=== PATIENT | female | born 1990 | race Two or more races ===

== ENCOUNTER 2018-04-24 05:34 | Inpatient (IN) | payer MEDICAID ==
[~2018-04-24] VITALS: Ht 157.5 cm; Wt 66.3 kg
[2018-04-24] VITALS (7 sets, daily range): BP systolic 102–124; BP diastolic 56–75
[2018-04-24] MEDS ORDERED: Mylanta II UD 30ml ORAL ONE (05:45)
--- NOTE | 2018-04-24 05:47 | Emergency Room Report ---
History of Present Illness General Source: Patient, EMS Present Illness HPI Is a 27-year-old female with history of depression. She's not on any medication. She was brought in by EMS with chief complaint of feeling depressed and suicidal. She took about 10 tablets of ibuprofen about an hour prior to arrival. She said she try to hurt herself. She's been depressed for over a year. Stop going to psychiatrist or taking medicine for about a year and a half now. She has 2 kids are living with their father. Patient has a history of methamphetamine abuse. Last use was 2 weeks ago. Also alcohol tonight. No other complaint. Allergies: Coded Allergies: No Known Allergies (Unverified , 04/24/18) Patient History Past Medical History: see triage record, old chart reviewed, depression Past Surgical History: none Family History: none Social History: ETOH, drug use, single, lives with parent Now: No Immunizations: other Reviewed Nursing Documentation: PMH: Agreed; PSxH: Agreed Review of Systems ENT: Denies: sore throat Cardiovascular: Denies: chest pain, palpitations Gastrointestinal/Abdominal: Denies: nausea, vomiting, diarrhea Musculoskeletal: Denies: back problems Skin: Denies: rash Psychiatric: Reports: prior history, depression Neurological: Denies: RICHTER, seizures All Other Systems: negative except mentioned in HPI Physical Exam vitals unremarkable Sp02 EP Interpretation: reviewed, normal General Appearance: alert/responsive, no apparent distress, non-toxic Head: normocephalic, atraumatic Eyes: PERRL, EOMI ENT: oropharynx normal Neck: supple/symm/no masses Respiratory: effort normal, no rhonchi, no wheezing Cardiovascular: no murmur, gallop, rub Gastrointestinal: non-tender, no mass, non-distended, no rebound/guarding, normal bowel sounds Musculoskeletal: gait & station normal Neurologic: oriented x3, sensory intact, motor strength/tone normal Psychiatric: other - Depressed with suicidal thoughts Suicide Risk Assessment: Suicidal Ideation: Yes Had intent to initiate attempt: Yes Pt's plan for suicide attempt: Yes Has means to complete attempt: Yes Skin: no rash, normal palpation Medical Decision Making Diagnostic Impression: Primary Impression: Suicidal ideation Additional Impressions: Depression Qualified Codes: F32.2 - Major depressive disorder, single episode, severe without psychotic features Overdose Qualified Codes: T50.902A - Poisoning by unspecified drugs, medicaments and biological substances, intentional self-harm, initial encounter Alcohol intoxication Qualified Codes: F10.920 - Alcohol use, unspecified with intoxication, uncomplicated ER Course Patient presents with suicidal attempt. Amount of ibuprofen is nontoxic. No evidence of any GI bleeding or decompensation. Labs sent. Police placed her on a 5150. If labs are normal, patient will be medically cleared. I will sign this patient out to Dr. Felix for final disposition. Lab Results Impression labs with elevated tylenol level Status: improved Disposition: ADMITTED INPATIENT Condition: Serious Yared Goff MD Apr 24, 2018 05:47
[2018-04-24] MEDS ORDERED: NKM (05:48)
[2018-04-24 06:58] LABS: APPEARANCE,URINE SLIGHTLY CLOUDY; BASOPHILS % (AUTO) 0.9 % (0.0-2.0); BILIRUBIN, URINE NEGATIVE (NEGATIVE); COLOR,URINE PALE YELLOW; GLUCOSE, URINE (UA) NEGATIVE (NEGATIVE); HEMATOCRIT 40.3 % (37.0-47.0); HEMOGLOBIN 13.8 G/DL (12.0-16.0); KETONES,URINE NEGATIVE (NEGATIVE); LEUKOCYTE ESTERASE ,URINE NEGATIVE (NEGATIVE); LYMPHOCYTES % (AUTO) 25.5 % (20.0-45.0); MEAN CORPUSCULAR VOLUME 83 FL (80-99); MONOCYTES % (AUTO) 4.9 % (1.0-10.0); NEUTROPHILS % (AUTO) 68.6 % (45.0-75.0); NITRITE,URINE NEGATIVE (NEGATIVE); PH,URINE 6 (4.5-8.0); PLATELET COUNT 330 K/UL (150-450); PROTEIN,URINE 1+ (NEGATIVE); RED BLOOD COUNT 4.86 M/UL (4.20-5.40); RED CELL DISTRIBUTION WIDTH 11.7 % (11.6-14.8); UROBILINOGEN,URINE NORMAL MG/DL (0.0-1.0); WHITE BLOOD COUNT 7.2 K/UL (4.8-10.8)
[2018-04-24 07:03] LABS: ANION GAP 12 mmol/L (5-15); BLOOD UREA NITROGEN 6 mg/dL (7-18); CARBON DIOXIDE 23 MMOL/L (21-32); CHLORIDE 106 MMOL/L (98-107); CREATININE 0.5 MG/DL (0.55-1.30); POTASSIUM 3.5 MMOL/L (3.5-5.1); SODIUM 141 MMOL/L (136-145)
[2018-04-24 07:08] LABS: ALANINE AMINOTRANSFERASE 25 U/L (12-78); ALBUMIN/GLOBULIN RATIO 0.7 (1.0-2.7); ALKALINE PHOSPHATASE 93 U/L (46-116); ASPARTATE AMINO TRANSFERASE 15 U/L (15-37); BILIRUBIN,TOTAL 0.3 MG/DL (0.2-1.0)
[2018-04-24] MEDS ORDERED: ACETADOTE IVPB ONE ×3 (07:30)
[2018-04-24] MEDS ORDERED: D5W IVPB ONE ×3 (07:30)
--- NOTE | 2018-04-24 15:41 | GI Initial Consult Note ---
History of Present Illness General Date patient seen: Apr 24, 2018 Time patient seen: 15:40 Reason for Hospitalization: Suicidal Referring physician: DENISHA Reason for Consultation: TYLENOL OD Present Illness HPI Is a 27-year-old female with history of depression. She's not on any medication. She was brought in by EMS with chief complaint of feeling depressed and suicidal. She took about 10 tablets of ibuprofen about an hour prior to arrival. She said she try to hurt herself. She's been depressed for over a year. Stop going to psychiatrist or taking medicine for about a year and a half now. She has 2 kids are living with their father. Patient has a history of methamphetamine abuse. Last use was 2 weeks ago. Also alcohol tonight. No other complaint. GI consulted for Tylenol OD. Pt was seen in ED, denied any abdominal pain and over all felt better. No noted active N/V or diarrhea. Her history is vague, stated that she was drinking, did alot of medication and could not remember anything else. At this time did not answer any further questions. Labs reviewed; acetaminophen elevation. No anemia. No leukocytosis. No history of endoscopy / colonoscopy. Home Meds Reported Medications No Known Medications* (NKM - No Known Medications*) ., 0 ., 0 Refills 04/24/18 Med list reviewed/reconciled: Yes Allergies: Coded Allergies: No Known Allergies (Unverified , 04/24/18) Patient History History Provided By: Patient, Medical Record PMH Narrative Past Medical History: see triage record, old chart reviewed, depression Past Surgical History: none Family History: none Social History: ETOH, drug use, single, lives with parent Now: No Immunizations: other Reviewed Nursing Documentation: PMH: Agreed; PSxH: Agreed Social History: Reports: smoking, alcohol use, drug use Review of Systems All Other Systems: negative except mentioned in HPI Physical Exam Vital Signs Date Time Temp Pulse Resp B/P (MAP) Pulse Ox O2 Delivery O2 Flow Rate FiO2 04/24/18 05:40 98.1 80 18 124/58 100 Room Air Sp02 EP Interpretation: reviewed, normal Labs Laboratory Tests Test 04/24/18 06:30 White Blood Count 7.2 K/UL (4.8-10.8) Red Blood Count 4.86 M/UL (4.20-5.40) Hemoglobin 13.8 G/DL (12.0-16.0) Hematocrit 40.3 % (37.0-47.0) Mean Corpuscular Volume 83 FL (80-99) Mean Corpuscular Hemoglobin 28.4 PG (27.0-31.0) Mean Corpuscular Hemoglobin Concent 34.2 G/DL (32.0-36.0) Red Cell Distribution Width 11.7 % (11.6-14.8) Platelet Count 330 K/UL (150-450) Mean Platelet Volume 5.1 FL (6.5-10.1) L Neutrophils (%) (Auto) 68.6 % (45.0-75.0) Lymphocytes (%) (Auto) 25.5 % (20.0-45.0) Monocytes (%) (Auto) 4.9 % (1.0-10.0) Eosinophils (%) (Auto) 0.0 % (0.0-3.0) Basophils (%) (Auto) 0.9 % (0.0-2.0) Urine Color Pale yellow Urine Appearance Slightly cloudy Urine pH 6 (4.5-8.0) Urine Specific [place] 1.010 (1.005-1.035) Urine Protein 1+ (NEGATIVE) H Urine Glucose (UA) Negative (NEGATIVE) Urine Ketones Negative (NEGATIVE) Urine Blood 2+ (NEGATIVE) H Urine Nitrite Negative (NEGATIVE) Urine Bilirubin Negative (NEGATIVE) Urine Urobilinogen Normal MG/DL (0.0-1.0) Urine Leukocyte Esterase Negative (NEGATIVE) Urine RBC 2-4 /HPF (0 - 2) H Urine WBC 2-4 /HPF (0 - 2) Urine Squamous Epithelial Cells Moderate /LPF (NONE/OCC) H Urine Bacteria Few /HPF (NONE) Urine HCG, Qualitative Negative (NEGATIVE) Sodium Level 141 MMOL/L (136-145) Potassium Level 3.5 MMOL/L (3.5-5.1) Chloride Level 106 MMOL/L (98-107) Carbon Dioxide Level 23 MMOL/L (21-32) Anion Gap 12 mmol/L (5-15) Blood Urea Nitrogen 6 mg/dL (7-18) L Creatinine 0.5 MG/DL (0.55-1.30) L Estimat Glomerular Filtration Rate > 60 mL/min (>60) Glucose Level 119 MG/DL (74-106) H Calcium Level 9.0 MG/DL (8.5-10.1) Total Bilirubin 0.3 MG/DL (0.2-1.0) Aspartate Amino Transf (AST/SGOT) 15 U/L (15-37) Alanine Aminotransferase (ALT/SGPT) 25 U/L (12-78) Alkaline Phosphatase 93 U/L (46-116) Total Protein 9.4 G/DL (6.4-8.2) H Albumin 4.0 G/DL (3.4-5.0) Globulin 5.4 g/dL Albumin/Globulin Ratio 0.7 (1.0-2.7) L Salicylates Level 0.9 ug/mL (2.8-20) L Urine Opiates Screen Negative (NEGATIVE) Acetaminophen Level 203 MCG/ML (10-30) *H Urine Barbiturates Screen Negative (NEGATIVE) Phencyclidine (PCP) Screen Negative (NEGATIVE) Urine Amphetamines Screen Negative (NEGATIVE) Urine Benzodiazepines Screen Negative (NEGATIVE) Urine Cocaine Screen Negative (NEGATIVE) Urine Marijuana (THC) Screen Negative (NEGATIVE) Serum Alcohol 146 mg/dL General Appearance: well appearing, no apparent distress, alert, obese Head: normocephalic EENT: PERRL/EOMI, normal ENT inspection Neck: supple Respiratory: normal breath sounds, no respiratory distress Cardiovascular: normal rate Gastrointestinal: normal inspection, non tender, soft, normal bowel sounds, non -distended Rectal: deferred Genitourinary: no CVA tenderness Musculoskeletal: normal inspection, back normal Neurologic: normal inspection, alert, oriented x3, responsive Psychiatric: normal inspection, judgement/insight normal, memory normal Skin: normal inspection, normal color, no rash, warm/dry, palpation normal, well hydrated Lymphatic: normal inspection, no adenopathy Current Medications Current Medications Medications (Trade) Dose Ordered Sig/Nadiya Route PRN Reason Start Time Stop Time Status Last Admin Dose Admin Acetylcysteine 6800 mg/Dextrose 1,034 ml @ 62.5 mls/hr ONCE ONCE IVPB 04/24/18 07:30 04/25/18 00:02 04/24/18 13:34 GI: Plan Problems: (1) Tylenol overdose (2) Overdose (3) Suicidal ideation Plan Patient currently receiving 3rd dose of Mucomyst. symptomatic treatment okay to advance diet Zofran prn fu psychiatric recommendations fu labs, Tylenol level tomorrow am Discussed with Dr. Jarquin. Thank you for this patient referral, we will follow. The patient was seen and examined at bedside and all new and available data was reviewed in the patients chart. I agree with the above findings, impression and plan. (Patient seen earlier today. Signature stamp does not reflect patient encounter time.). - MD Shell Caldera AnhMillicent [employer] Apr 24, 2018 15:41
--- NOTE | 2018-04-24 18:30 | History and Physical Report ---
DATE OF ADMISSION: 04/24/2018 CHIEF COMPLAINT: The patient comes in with Tylenol overdose. HISTORY OF PRESENT ILLNESS: The patient states that she is not sure exactly how many she took, but she states it was more than half the bottle of Tylenol that she took. She is going to telemetry for Tylenol overdose, on 5150 hold and was given first dose in the ER for the antidote and initial laboratory draws were good, and alcohol level was also elevated. The patient denies nausea, vomiting, or diarrhea. Denies headache. Denies shortness of breath. Denies fever or chills. No chest pain. No shortness of breath. Denies cough. PAST MEDICAL HISTORY: None. PAST SURGICAL HISTORY: None. SOCIAL HISTORY: She has history of drug abuse. History of alcohol and drug abuse as well as history of smoking. MEDICATIONS: None. FAMILY HISTORY: Noncontributory. ALLERGIES: No known allergies. FAMILY HISTORY: Noncontributory. REVIEW OF SYSTEMS: HEENT: Denies headaches. RESPIRATORY: Denies shortness of breath. Denies cough. CARDIOVASCULAR: Denies chest pain. GASTROINTESTINAL: Denies nausea, vomiting, or diarrhea. EXTREMITIES: Denies pain. CENTRAL NERVOUS SYSTEM: No change in vision or speech pattern. PHYSICAL EXAMINATION: VITAL SIGNS: Temperature 97.2, pulse 78, and blood pressure 130/70. HEENT: PERRLA. NECK: Supple. No lymphadenopathy. CHEST: Clear to auscultation CARDIOVASCULAR: Regular rate and rhythm. LUNGS: GASTROINTESTINAL: Soft, nontender, and nondistended. No organomegaly. EXTREMITIES: No edema. Moves all four extremities. NEUROLOGIC: Sensory intact to light touch. Reflexes equal on both sides. The patient opens eyes, however, she is sedated and altered. LABORATORY DATA: She has normal liver function tests essentially. Antidote was given at the ER. ASSESSMENT AND PLAN: The patient is going for suicide attempt overdose with a sitter. Dr. Booker has already been consulted. Dr. Jarquin, Dr. Valentin, Dr. Booker are consulted for the case. Luca Santizo M.D. DR: Tierra JOB#: [id number] CC:
[2018-04-25] VITALS: BP 112/68
[2018-04-25 04:00] VITALS: BP 104/70
[2018-04-25 08:00] VITALS: BP 100/61
[2018-04-25 08:28] LABS: BASOPHILS % (AUTO) 1.4 % (0.0-2.0); EOSINOPHILS % (AUTO) 0.6 % (0.0-3.0); HEMATOCRIT 37.6 % (37.0-47.0); HEMOGLOBIN 12.6 G/DL (12.0-16.0); LYMPHOCYTES % (AUTO) 49.6 % (20.0-45.0); MEAN CORPUSCULAR VOLUME 84 FL (80-99); MONOCYTES % (AUTO) 4.8 % (1.0-10.0); NEUTROPHILS % (AUTO) 43.6 % (45.0-75.0); PLATELET COUNT 266 K/UL (150-450); RED BLOOD COUNT 4.48 M/UL (4.20-5.40); RED CELL DISTRIBUTION WIDTH 11.6 % (11.6-14.8); WHITE BLOOD COUNT 5.8 K/UL (4.8-10.8)
[2018-04-25 08:47] LABS: ANION GAP 7 mmol/L (5-15); BLOOD UREA NITROGEN 5 mg/dL (7-18); CARBON DIOXIDE 26 MMOL/L (21-32); CHLORIDE 103 MMOL/L (98-107); CREATININE 0.6 MG/DL (0.55-1.30); POTASSIUM 3.4 MMOL/L (3.5-5.1); SODIUM 136 MMOL/L (136-145)
--- NOTE | 2018-04-25 10:51 | General Progress Note ---
Assessment/Plan Problem List: (1) Tylenol overdose ICD Codes: T39.1X1A - Poisoning by 4-Aminophenol derivatives, accidental ( unintentional), initial encounter SNOMED: 704890678 (2) Depression ICD Codes: F32.9 - Major depressive disorder, single episode, unspecified SNOMED: 16793256 Qualifiers: Qualified Codes: F32.2 - Major depressive disorder, single episode, severe without psychotic features (3) Suicidal ideation ICD Codes: R45.851 - Suicidal ideations SNOMED: 9867880 Assessment/Plan normal LFTS fu psych on diet Subjective ROS Limited/Unobtainable: Yes Allergies: Coded Allergies: No Known Allergies (Unverified , 04/24/18) Objective Last 24 Hour Vital Signs Date Time Temp Pulse Resp B/P (MAP) Pulse Ox O2 Delivery O2 Flow Rate FiO2 04/25/18 09:00 Room Air 04/25/18 08:00 97.9 89 18 100/61 (74) 98 04/25/18 08:00 79 04/25/18 04:00 98.4 69 20 104/70 (81) 100 04/25/18 04:00 70 04/25/18 00:00 98.0 82 18 112/68 (83) 97 04/25/18 00:00 71 04/24/18 21:00 Room Air 04/24/18 20:00 98.4 85 19 108/56 (73) 98 04/24/18 20:00 67 04/24/18 16:20 97.5 87 19 109/75 (86) 98 04/24/18 16:13 04/24/18 16:00 76 04/24/18 15:12 98.2 99 19 107/74 (85) 100 04/24/18 14:36 Room Air 04/24/18 14:00 98.1 95 20 111/75 99 Room Air 04/24/18 12:26 95 20 111/75 99 Room Air Intake and Output 04/24/18 04/25/18 19:00 07:00 Intake Total 592 ml Output Total 100 ml Balance -100 ml 592 ml Intake IV Total 592 ml Output Emesis 100 ml # Voids 1 Laboratory Tests 04/25/18 07:45: White Blood Count 5.8, Red Blood Count 4.48, Hemoglobin 12.6, Hematocrit 37.6, Mean Corpuscular Volume 84, Mean Corpuscular Hemoglobin 28.2, Mean Corpuscular Hemoglobin Concent 33.6, Red Cell Distribution Width 11.6, Platelet Count 266, Mean Platelet Volume 5.1L, Neutrophils (%) (Auto) 43.6L, Lymphocytes (%) (Auto) 49.6H, Monocytes (%) (Auto) 4.8, Eosinophils (%) (Auto) 0.6, Basophils (%) (Auto ) 1.4, Sodium Level 136, Potassium Level 3.4L, Chloride Level 103, Carbon Dioxide Level 26, Anion Gap 7, Blood Urea Nitrogen 5L, Creatinine 0.6, Estimat Glomerular Filtration Rate > 60, Glucose Level 120H, Calcium Level 9.0, Acetaminophen Level < 2L Height (Feet): 5 Height (Inches): 2.00 Weight (Pounds): 146 General Appearance: alert EENT: normal ENT inspection Neck: supple Cardiovascular: normal rate Respiratory/Chest: lungs clear Abdomen: normal bowel sounds, non tender, soft Extremities: non-tender Alton Jarquin MD Apr 25, 2018 10:51
--- NOTE | 2018-04-25 11:28 | General Progress Note ---
Assessment/Plan Problem List: (1) Tylenol overdose ICD Codes: T39.1X1A - Poisoning by 4-Aminophenol derivatives, accidental ( unintentional), initial encounter SNOMED: 529471779 (2) Overdose ICD Codes: T50.901A - Poisoning by unspecified drugs, medicaments and biological substances, accidental (unintentional), initial encounter SNOMED: 95975596 Qualifiers: Qualified Codes: T50.902A - Poisoning by unspecified drugs, medicaments and biological substances, intentional self-harm, initial encounter (3) Depression ICD Codes: F32.9 - Major depressive disorder, single episode, unspecified SNOMED: 76752011 Qualifiers: Qualified Codes: F32.2 - Major depressive disorder, single episode, severe without psychotic features (4) Suicidal ideation ICD Codes: R45.851 - Suicidal ideations SNOMED: 2636020 Status: progressing Assessment/Plan afebrile tylenol o/d treatment per dr arielle urrutia Subjective ROS Limited/Unobtainable: Yes Allergies: Coded Allergies: No Known Allergies (Unverified , 04/24/18) Objective Last 24 Hour Vital Signs Date Time Temp Pulse Resp B/P (MAP) Pulse Ox O2 Delivery O2 Flow Rate FiO2 04/25/18 09:00 Room Air 04/25/18 08:00 97.9 89 18 100/61 (74) 98 04/25/18 08:00 79 04/25/18 04:00 98.4 69 20 104/70 (81) 100 04/25/18 04:00 70 04/25/18 00:00 98.0 82 18 112/68 (83) 97 04/25/18 00:00 71 04/24/18 21:00 Room Air 04/24/18 20:00 98.4 85 19 108/56 (73) 98 04/24/18 20:00 67 04/24/18 16:20 97.5 87 19 109/75 (86) 98 04/24/18 16:13 04/24/18 16:00 76 04/24/18 15:12 98.2 99 19 107/74 (85) 100 04/24/18 14:36 Room Air 04/24/18 14:00 98.1 95 20 111/75 99 Room Air 04/24/18 12:26 95 20 111/75 99 Room Air Intake and Output 04/24/18 04/25/18 19:00 07:00 Intake Total 592 ml Output Total 100 ml Balance -100 ml 592 ml Intake IV Total 592 ml Output Emesis 100 ml # Voids 1 Laboratory Tests 04/25/18 07:45: White Blood Count 5.8, Red Blood Count 4.48, Hemoglobin 12.6, Hematocrit 37.6, Mean Corpuscular Volume 84, Mean Corpuscular Hemoglobin 28.2, Mean Corpuscular Hemoglobin Concent 33.6, Red Cell Distribution Width 11.6, Platelet Count 266, Mean Platelet Volume 5.1L, Neutrophils (%) (Auto) 43.6L, Lymphocytes (%) (Auto) 49.6H, Monocytes (%) (Auto) 4.8, Eosinophils (%) (Auto) 0.6, Basophils (%) (Auto ) 1.4, Sodium Level 136, Potassium Level 3.4L, Chloride Level 103, Carbon Dioxide Level 26, Anion Gap 7, Blood Urea Nitrogen 5L, Creatinine 0.6, Estimat Glomerular Filtration Rate > 60, Glucose Level 120H, Calcium Level 9.0, Acetaminophen Level < 2L 04/25/18 10:35: Prothrombin Time [Pending], Prothromb Time International Ratio [Pending], Aspartate Amino Transf (AST/SGOT) [Pending], Alanine Aminotransferase (ALT/SGPT ) [Pending] Height (Feet): 5 Height (Inches): 2.00 Weight (Pounds): 146 Neck: supple Cardiovascular: normal rate Respiratory/Chest: lungs clear Abdomen: soft Luca Santizo MD Apr 25, 2018 11:27
[2018-04-25 11:47] LABS: ALANINE AMINOTRANSFERASE 19 U/L (12-78); ASPARTATE AMINO TRANSFERASE 13 U/L (15-37)
[2018-04-25 12:00] VITALS: BP 104/61
[2018-04-25] MEDS ORDERED: ACETADOTE IV ONE (12:00)
[2018-04-25] MEDS ORDERED: D5W IV ONE (12:00)
[2018-04-25 16:00] VITALS: BP 102/65
--- NOTE | 2018-04-25 16:35 | Cardiology Report ---
APPROVED REPORT EKG Measurement Heart [id number] NE 142P74 [id number] Normal sinus rhythm Rightward axis Borderline ECG
--- NOTE | 2018-04-25 17:54 | Consultation ---
Consult Note Consult Note s a 27-year-old female with history of depression. She's not on any medication. She was brought in by EMS with chief complaint of feeling depressed and suicidal. She took about 10 tablets of ibuprofen about an hour prior to arrival. She said she try to hurt herself. She's been depressed for over a year. Stop going to psychiatrist or taking medicine for about a year and a half now. She has 2 kids are living with their father. Patient has a history of methamphetamine abuse. Last use was 2 weeks ago. Also alcohol tonight. No other complaint. No Known Allergies (Unverified , 04/24/18) Social History: ETOH, drug use, single, lives with parent Assessment/Plan Suicidal ideation Depression Overdose- tylenol level now down Alcohol intoxication Hydrate- K supplement Med surg regular diett per psych Toro Valentin MD Apr 25, 2018 17:54
[2018-04-25 20:00] VITALS: BP 100/59
--- NOTE | 2018-04-25 22:45 | Consultation ---
History of Present Illness General Date patient seen: Apr 25, 2018 Chief Complaint: Suicidal Referring physician: DENISHA Reason for Consultation: TYLENOL OD Present Illness HPI 27-year-old female with history of depression and meth use. the pt has had hx of cutting. She's not on any medication. She was brought in by EMS with chief complaint of feeling depressed and suicidal after her boyfriend broke up with her . She took about 10 tablets of ibuprofen about an hour prior to arrival. the pt is currently but and per the pt the has the full custody of both kids. the pt has been using meth excessively and her teeth are eroded. she minimizes the meth use and stated she has only used couple of times. the pt endorses depressed mood, hopelessness and low energy but the pt denies suicidal thoughts. the pt does not endorse psychotic/manic sxs. Allergies: Coded Allergies: No Known Allergies (Unverified , 04/24/18) Medication History Scheduled No Known Medications* (NKM - No Known Medications*), 0 ., (Reported) Patient History Limited by: medical condition History Provided By: Patient, Medical Record, PMD Healthcare decision maker Resuscitation status Full Code Advanced Directive on File Past Medical/Surgical History Past Medical/Surgical History: (1) Tylenol overdose (2) Depression (3) Suicidal ideation (4) Overdose Review of Systems Psychiatric: Reports: anxiety, depressed feelings, emotional problems Physical Exam General Appearance: no apparent distress, alert, overweight Neurologic: oriented x 3, responsive, depressed affect Last 24 Hour Vital Signs Date Time Temp Pulse Resp B/P (MAP) Pulse Ox O2 Delivery O2 Flow Rate FiO2 04/25/18 20:00 98.1 83 18 100/59 (73) 99 04/25/18 16:00 73 04/25/18 16:00 98.4 84 20 102/65 (77) 99 04/25/18 12:00 98.1 81 20 104/61 (75) 99 04/25/18 12:00 89 04/25/18 09:00 Room Air 04/25/18 08:00 97.9 89 18 100/61 (74) 98 04/25/18 08:00 79 04/25/18 04:00 98.4 69 20 104/70 (81) 100 04/25/18 04:00 70 04/25/18 00:00 98.0 82 18 112/68 (83) 97 04/25/18 00:00 71 Intake and Output 04/24/18 04/25/18 19:00 07:00 Intake Total 592 ml Output Total 100 ml Balance -100 ml 592 ml IV Total 592 ml Output Emesis 100 ml # Voids 1 Laboratory Tests Test 04/25/18 07:45 04/25/18 10:35 White Blood Count 5.8 K/UL (4.8-10.8) Red Blood Count 4.48 M/UL (4.20-5.40) Hemoglobin 12.6 G/DL (12.0-16.0) Hematocrit 37.6 % (37.0-47.0) Mean Corpuscular Volume 84 FL (80-99) Mean Corpuscular Hemoglobin 28.2 PG (27.0-31.0) Mean Corpuscular Hemoglobin Concent 33.6 G/DL (32.0-36.0) Red Cell Distribution Width 11.6 % (11.6-14.8) Platelet Count 266 K/UL (150-450) Mean Platelet Volume 5.1 FL (6.5-10.1) L Neutrophils (%) (Auto) 43.6 % (45.0-75.0) L Lymphocytes (%) (Auto) 49.6 % (20.0-45.0) H Monocytes (%) (Auto) 4.8 % (1.0-10.0) Eosinophils (%) (Auto) 0.6 % (0.0-3.0) Basophils (%) (Auto) 1.4 % (0.0-2.0) Sodium Level 136 MMOL/L (136-145) Potassium Level 3.4 MMOL/L (3.5-5.1) L Chloride Level 103 MMOL/L (98-107) Carbon Dioxide Level 26 MMOL/L (21-32) Anion Gap 7 mmol/L (5-15) Blood Urea Nitrogen 5 mg/dL (7-18) L Creatinine 0.6 MG/DL (0.55-1.30) Estimat Glomerular Filtration Rate > 60 mL/min (>60) Glucose Level 120 MG/DL (74-106) H Calcium Level 9.0 MG/DL (8.5-10.1) Acetaminophen Level < 2 MCG/ML (10-30) L Prothrombin Time 10.7 SEC (9.30-11.50) Prothromb Time International Ratio 1.0 (0.9-1.1) Aspartate Amino Transf (AST/SGOT) 13 U/L (15-37) L Alanine Aminotransferase (ALT/SGPT) 19 U/L (12-78) Height (Feet): 5 Height (Inches): 2.00 Weight (Pounds): 146 Medications Current Medications Medications (Trade) Dose Ordered Sig/Nadiya Route PRN Reason Start Time Stop Time Status Last Admin Dose Admin Acetylcysteine 6600 mg/Dextrose 1,033 ml @ 64.563 mls/ hr ONCE ONCE IV 04/25/18 12:00 04/26/18 03:59 04/25/18 11:23 Assessment/Plan Problem List: (1) Methamphetamine abuse ICD Codes: F15.10 - Other stimulant abuse, uncomplicated SNOMED: 010799417 (2) metham (3) Depression ICD Codes: F32.9 - Major depressive disorder, single episode, unspecified SNOMED: 72029994 Qualifiers: Qualified Codes: F32.2 - Major depressive disorder, single episode, severe without psychotic features (4) Overdose ICD Codes: T50.901A - Poisoning by unspecified drugs, medicaments and biological substances, accidental (unintentional), initial encounter SNOMED: 75552336 Qualifiers: Qualified Codes: T50.902A - Poisoning by unspecified drugs, medicaments and biological substances, intentional self-harm, initial encounter Status: stable Assessment/Plan lexapro 10mg qam the pt does not meet the criteria for hold/inpatient level of care dc the sitter script will be given report to [facility] if needed Kaci Booker MD Apr 25, 2018 22:45
--- NOTE | 2018-04-25 22:47 | Consultation ---
History of Present Illness General Chief Complaint: Suicidal Referring physician: DENISHA Reason for Consultation: TYLENOL OD Present Illness Allergies: Coded Allergies: No Known Allergies (Unverified , 04/24/18) Medication History Scheduled No Known Medications* (NKM - No Known Medications*), 0 ., (Reported) Patient History Healthcare decision maker Resuscitation status Full Code Advanced Directive on File Physical Exam Last 24 Hour Vital Signs Date Time Temp Pulse Resp B/P (MAP) Pulse Ox O2 Delivery O2 Flow Rate FiO2 04/25/18 20:00 98.1 83 18 100/59 (73) 99 04/25/18 16:00 73 04/25/18 16:00 98.4 84 20 102/65 (77) 99 04/25/18 12:00 98.1 81 20 104/61 (75) 99 04/25/18 12:00 89 04/25/18 09:00 Room Air 04/25/18 08:00 97.9 89 18 100/61 (74) 98 04/25/18 08:00 79 04/25/18 04:00 98.4 69 20 104/70 (81) 100 04/25/18 04:00 70 04/25/18 00:00 98.0 82 18 112/68 (83) 97 04/25/18 00:00 71 Intake and Output 04/24/18 04/25/18 19:00 07:00 Intake Total 592 ml Output Total 100 ml Balance -100 ml 592 ml IV Total 592 ml Output Emesis 100 ml # Voids 1 Laboratory Tests Test 04/25/18 07:45 04/25/18 10:35 White Blood Count 5.8 K/UL (4.8-10.8) Red Blood Count 4.48 M/UL (4.20-5.40) Hemoglobin 12.6 G/DL (12.0-16.0) Hematocrit 37.6 % (37.0-47.0) Mean Corpuscular Volume 84 FL (80-99) Mean Corpuscular Hemoglobin 28.2 PG (27.0-31.0) Mean Corpuscular Hemoglobin Concent 33.6 G/DL (32.0-36.0) Red Cell Distribution Width 11.6 % (11.6-14.8) Platelet Count 266 K/UL (150-450) Mean Platelet Volume 5.1 FL (6.5-10.1) L Neutrophils (%) (Auto) 43.6 % (45.0-75.0) L Lymphocytes (%) (Auto) 49.6 % (20.0-45.0) H Monocytes (%) (Auto) 4.8 % (1.0-10.0) Eosinophils (%) (Auto) 0.6 % (0.0-3.0) Basophils (%) (Auto) 1.4 % (0.0-2.0) Sodium Level 136 MMOL/L (136-145) Potassium Level 3.4 MMOL/L (3.5-5.1) L Chloride Level 103 MMOL/L (98-107) Carbon Dioxide Level 26 MMOL/L (21-32) Anion Gap 7 mmol/L (5-15) Blood Urea Nitrogen 5 mg/dL (7-18) L Creatinine 0.6 MG/DL (0.55-1.30) Estimat Glomerular Filtration Rate > 60 mL/min (>60) Glucose Level 120 MG/DL (74-106) H Calcium Level 9.0 MG/DL (8.5-10.1) Acetaminophen Level < 2 MCG/ML (10-30) L Prothrombin Time 10.7 SEC (9.30-11.50) Prothromb Time International Ratio 1.0 (0.9-1.1) Aspartate Amino Transf (AST/SGOT) 13 U/L (15-37) L Alanine Aminotransferase (ALT/SGPT) 19 U/L (12-78) Height (Feet): 5 Height (Inches): 2.00 Weight (Pounds): 146 Medications Current Medications Medications (Trade) Dose Ordered Sig/Nadiya Route PRN Reason Start Time Stop Time Status Last Admin Dose Admin Acetylcysteine 6600 mg/Dextrose 1,033 ml @ 64.563 mls/ hr ONCE ONCE IV 04/25/18 12:00 04/26/18 03:59 04/25/18 11:23 Assessment/Plan Problem List: (1) Methamphetamine abuse ICD Codes: F15.10 - Other stimulant abuse, uncomplicated SNOMED: 579072781 (2) metham (3) Depression ICD Codes: F32.9 - Major depressive disorder, single episode, unspecified SNOMED: 88564884 Qualifiers: Qualified Codes: F32.2 - Major depressive disorder, single episode, severe without psychotic features (4) Overdose ICD Codes: T50.901A - Poisoning by unspecified drugs, medicaments and biological substances, accidental (unintentional), initial encounter SNOMED: 39315418 Qualifiers: Qualified Codes: T50.902A - Poisoning by unspecified drugs, medicaments and biological substances, intentional self-harm, initial encounter Assessment/Plan lexapro 10mg qam the pt does not meet the criteria for hold/inpatient level of care dc the sitter script will be given report to dcsf if needed MIPS Medication Reconciliation Is this a Psycho/Diag encounte: Yes Unhealthy Alcohol Use 431 (psycho/diag only) I Obtained,updated or reviewed the patient's current medications (including prescription,over the counter, herbal, and nutritional supplements). Tobacco Use 226 (psycho/diag only) Patient was screened for tobacco use today or within the past 2 years. Patient was NOT identified as a tobacco user. BMI 128 (psycho/diag only) BMI was documented today or within the past year. BMI was outside normal parameters, and the patient received counseling.Depression screening was performed today. Depression PHQ-9 Score: 25 Does this Patient have Dementi: Kaci Rasmussen MD Apr 25, 2018 22:47
[2018-04-26 00:05] VITALS: BP 98/59
[2018-04-26 04:38] VITALS: BP 101/64
[2018-04-26 06:39] LABS: BASOPHILS % (AUTO) 0.9 % (0.0-2.0); EOSINOPHILS % (AUTO) 0.2 % (0.0-3.0); HEMATOCRIT 35.9 % (37.0-47.0); HEMOGLOBIN 12.3 G/DL (12.0-16.0); LYMPHOCYTES % (AUTO) 31.2 % (20.0-45.0); MEAN CORPUSCULAR VOLUME 83 FL (80-99); MONOCYTES % (AUTO) 7.3 % (1.0-10.0); NEUTROPHILS % (AUTO) 60.4 % (45.0-75.0); PLATELET COUNT 262 K/UL (150-450); RED BLOOD COUNT 4.31 M/UL (4.20-5.40); RED CELL DISTRIBUTION WIDTH 11.4 % (11.6-14.8); WHITE BLOOD COUNT 7.3 K/UL (4.8-10.8)
[2018-04-26 07:12] LABS: ALANINE AMINOTRANSFERASE 47 U/L (12-78); ALBUMIN 3.4 G/DL (3.4-5.0); ALBUMIN/GLOBULIN RATIO 0.7 (1.0-2.7); ALKALINE PHOSPHATASE 73 U/L (46-116); ANION GAP 10 mmol/L (5-15); ASPARTATE AMINO TRANSFERASE 33 U/L (15-37); BILIRUBIN,TOTAL 0.6 MG/DL (0.2-1.0); BLOOD UREA NITROGEN 6 mg/dL (7-18); CALCIUM 8.9 MG/DL (8.5-10.1); CARBON DIOXIDE 23 MMOL/L (21-32); CHLORIDE 105 MMOL/L (98-107); CHOLESTEROL 183 MG/DL (< 200); CREATINE KINASE 44 U/L (26-308); CREATININE 0.5 MG/DL (0.55-1.30); GAMMA GLUTAMYL TRANSPEPTIDASE 21 U/L (5-85); HDL CHOLESTEROL 53 MG/DL (40-60); PHOSPHORUS 2.7 MG/DL (2.5-4.9); POTASSIUM 3.5 MMOL/L (3.5-5.1); SODIUM 138 MMOL/L (136-145); TRIGLYCERIDES 102 MG/DL (30-150)
[2018-04-26 08:00] VITALS: BP 106/61
--- NOTE | 2018-04-26 10:10 | GI Progress Note ---
Assessment/Plan Problems: (1) Methamphetamine abuse ICD Codes: F15.10 - Other stimulant abuse, uncomplicated SNOMED: 912622074 (2) Suicidal ideation ICD Codes: R45.851 - Suicidal ideations SNOMED: 7266200 (3) Depression ICD Codes: F32.9 - Major depressive disorder, single episode, unspecified SNOMED: 58446047 Qualifiers: Qualified Codes: F32.2 - Major depressive disorder, single episode, severe without psychotic features (4) Overdose ICD Codes: T50.901A - Poisoning by unspecified drugs, medicaments and biological substances, accidental (unintentional), initial encounter SNOMED: 31871800 Qualifiers: Qualified Codes: T50.902A - Poisoning by unspecified drugs, medicaments and biological substances, intentional self-harm, initial encounter (5) Tylenol overdose ICD Codes: T39.1X1A - Poisoning by 4-Aminophenol derivatives, accidental ( unintentional), initial encounter SNOMED: 230338731 Status: stable Status Narrative Discussed with Dr. Jarquin. Assessment/Plan on regular diet normal LFTS fu psych okay for DC per GI standpoint The patient was seen and examined at bedside and all new and available data was reviewed in the patients chart. I agree with the above findings, impression and plan. (Patient seen earlier today. Signature stamp does not reflect patient encounter time.). - Alton Jarquin MD Subjective Gastrointestinal/Abdominal: Reports: no symptoms Objective Last 24 Hour Vital Signs Date Time Temp Pulse Resp B/P (MAP) Pulse Ox O2 Delivery O2 Flow Rate FiO2 04/26/18 04:38 99.0 69 18 101/64 (76) 99 04/26/18 00:05 99.7 67 18 98/59 (72) 96 04/25/18 21:00 Room Air 04/25/18 20:00 98.1 83 18 100/59 (73) 99 04/25/18 19:13 79 04/25/18 16:00 73 04/25/18 16:00 98.4 84 20 102/65 (77) 99 04/25/18 12:00 98.1 81 20 104/61 (75) 99 04/25/18 12:00 89 Intake and Output 04/25/18 04/26/18 18:59 06:59 Intake Total 311 ml 674 ml Balance 311 ml 674 ml Intake Oral 236 ml 354 ml IV Total 75 ml 320 ml # Voids 1 5 Laboratory Tests Test 04/25/18 10:35 04/26/18 06:06 Prothrombin Time 10.7 SEC (9.30-11.50) Prothromb Time International Ratio 1.0 (0.9-1.1) Aspartate Amino Transf (AST/SGOT) 13 U/L (15-37) L 33 U/L (15-37) Alanine Aminotransferase (ALT/SGPT) 19 U/L (12-78) 47 U/L (12-78) White Blood Count 7.3 K/UL (4.8-10.8) Red Blood Count 4.31 M/UL (4.20-5.40) Hemoglobin 12.3 G/DL (12.0-16.0) Hematocrit 35.9 % (37.0-47.0) L Mean Corpuscular Volume 83 FL (80-99) Mean Corpuscular Hemoglobin 28.5 PG (27.0-31.0) Mean Corpuscular Hemoglobin Concent 34.3 G/DL (32.0-36.0) Red Cell Distribution Width 11.4 % (11.6-14.8) L Platelet Count 262 K/UL (150-450) Mean Platelet Volume 5.5 FL (6.5-10.1) L Neutrophils (%) (Auto) 60.4 % (45.0-75.0) Lymphocytes (%) (Auto) 31.2 % (20.0-45.0) Monocytes (%) (Auto) 7.3 % (1.0-10.0) Eosinophils (%) (Auto) 0.2 % (0.0-3.0) Basophils (%) (Auto) 0.9 % (0.0-2.0) Sodium Level 138 MMOL/L (136-145) Potassium Level 3.5 MMOL/L (3.5-5.1) Chloride Level 105 MMOL/L (98-107) Carbon Dioxide Level 23 MMOL/L (21-32) Anion Gap 10 mmol/L (5-15) Blood Urea Nitrogen 6 mg/dL (7-18) L Creatinine 0.5 MG/DL (0.55-1.30) L Estimat Glomerular Filtration Rate > 60 mL/min (>60) Glucose Level 95 MG/DL (74-106) Hemoglobin A1c 5.5 % (4.3-6.0) Uric Acid 2.3 MG/DL (2.6-7.2) L Calcium Level 8.9 MG/DL (8.5-10.1) Phosphorus Level 2.7 MG/DL (2.5-4.9) Magnesium Level 1.8 MG/DL (1.8-2.4) Total Bilirubin 0.6 MG/DL (0.2-1.0) Gamma Glutamyl Transpeptidase 21 U/L (5-85) Alkaline Phosphatase 73 U/L (46-116) Total Creatine Kinase 44 U/L (26-308) Total Protein 8.4 G/DL (6.4-8.2) H Albumin 3.4 G/DL (3.4-5.0) Globulin 5.0 g/dL Albumin/Globulin Ratio 0.7 (1.0-2.7) L Triglycerides Level 102 MG/DL (30-150) Cholesterol Level 183 MG/DL (< 200) LDL Cholesterol 123 mg/dL (<100) H HDL Cholesterol 53 MG/DL (40-60) Cholesterol/HDL Ratio 3.5 (3.3-4.4) Vitamin B12 Level 393 PG/ML (193-986) Folate 17.4 NG/ML (8.6-58.9) Thyroid Stimulating Hormone (TSH) 2.279 uiU/mL (0.358-3.740) Height (Feet): 5 Height (Inches): 2.00 Weight (Pounds): 146 General Appearance: WD/WN, no apparent distress, alert Cardiovascular: normal rate Respiratory/Chest: normal breath sounds, no respiratory distress Abdominal Exam: normal bowel sounds, non tender, soft Extremities: normal range of motion, non-tender Gabby Goff NP Apr 26, 2018 10:10
[2018-04-26 12:00] VITALS: BP 108/66
[2018-04-26] MEDS ORDERED: ACETADOTE IV ONE ×4 (12:00)
[2018-04-26] MEDS ORDERED: D5W IV ONE ×4 (12:00)
--- NOTE | 2018-04-26 12:36 | Nephrology Progress Note ---
Assessment/Plan Problem List: (1) Suicidal ideation (2) Overdose (3) Depression Assessment Suicidal ideation Depression Overdose- tylenol level now down Alcohol intoxication Plan Hydrate PO K supplement as needed Med surg regular diet per psych ? DC Subjective ROS Limited/Unobtainable: No Objective Objective Last 24 Hour Vital Signs Date Time Temp Pulse Resp B/P (MAP) Pulse Ox O2 Delivery O2 Flow Rate FiO2 04/26/18 09:00 Room Air 04/26/18 08:00 97.5 82 19 106/61 (76) 96 04/26/18 04:38 99.0 69 18 101/64 (76) 99 04/26/18 00:05 99.7 67 18 98/59 (72) 96 04/25/18 21:00 Room Air 04/25/18 20:00 98.1 83 18 100/59 (73) 99 04/25/18 19:13 79 04/25/18 16:00 73 04/25/18 16:00 98.4 84 20 102/65 (77) 99 Intake and Output 04/25/18 04/26/18 19:00 07:00 Intake Total 236 ml 674 ml Balance 236 ml 674 ml Intake Oral 236 ml 354 ml IV Total 320 ml # Voids 1 5 Laboratory Tests 04/26/18 06:06: White Blood Count 7.3, Red Blood Count 4.31, Hemoglobin 12.3, Hematocrit 35.9L, Mean Corpuscular Volume 83, Mean Corpuscular Hemoglobin 28.5, Mean Corpuscular Hemoglobin Concent 34.3, Red Cell Distribution Width 11.4L, Platelet Count 262, Mean Platelet Volume 5.5L, Neutrophils (%) (Auto) 60.4, Lymphocytes (%) (Auto) 31.2, Monocytes (%) (Auto) 7.3, Eosinophils (%) (Auto) 0.2, Basophils (%) (Auto ) 0.9, Sodium Level 138, Potassium Level 3.5, Chloride Level 105, Carbon Dioxide Level 23, Anion Gap 10, Blood Urea Nitrogen 6L, Creatinine 0.5L, Estimat Glomerular Filtration Rate > 60, Glucose Level 95, Hemoglobin A1c 5.5, Uric Acid 2.3L, Calcium Level 8.9, Phosphorus Level 2.7, Magnesium Level 1.8, Total Bilirubin 0.6, Gamma Glutamyl Transpeptidase 21, Aspartate Amino Transf ( AST/SGOT) 33, Alanine Aminotransferase (ALT/SGPT) 47, Alkaline Phosphatase 73, Total Creatine Kinase 44, Total Protein 8.4H, Albumin 3.4, Globulin 5.0, Albumin /Globulin Ratio 0.7L, Triglycerides Level 102, Cholesterol Level 183, LDL Cholesterol 123H, HDL Cholesterol 53, Cholesterol/HDL Ratio 3.5, Vitamin B12 Level 393, Folate 17.4, Thyroid Stimulating Hormone (TSH) 2.279 Height (Feet): 5 Height (Inches): 2.00 Weight (Pounds): 146 General Appearance: no apparent distress Objective no change Toro Valentin MD Apr 26, 2018 12:36
[2018-04-26 16:00] VITALS: BP 101/69
[2018-04-26 20:00] VITALS: BP 106/69
--- NOTE | 2018-04-26 23:06 | General Progress Note ---
Assessment/Plan Problem List: (1) Methamphetamine abuse ICD Codes: F15.10 - Other stimulant abuse, uncomplicated SNOMED: 030350982 (2) metham (3) Depression ICD Codes: F32.9 - Major depressive disorder, single episode, unspecified SNOMED: 78565955 Qualifiers: Qualified Codes: F32.2 - Major depressive disorder, single episode, severe without psychotic features (4) Overdose ICD Codes: T50.901A - Poisoning by unspecified drugs, medicaments and biological substances, accidental (unintentional), initial encounter SNOMED: 87742473 Qualifiers: Qualified Codes: T50.902A - Poisoning by unspecified drugs, medicaments and biological substances, intentional self-harm, initial encounter Status: stable, progressing Assessment/Plan lexapro 10mg qam the pt does not meet the criteria for hold/inpatient level of care script will be given report to dcsf if needed d/w nurse and battery charger conveyor line Subjective Gastrointestinal/Abdominal: Reports: nausea Neurologic/Psychiatric: Reports: anxiety, depressed, emotional problems Allergies: Coded Allergies: No Known Allergies (Unverified , 04/24/18) Subjective the pt stated that she does not want to take lexapro after dicharge. the pt is not suicidal the pt stated that she lives with her mom Objective Last 24 Hour Vital Signs Date Time Temp Pulse Resp B/P (MAP) Pulse Ox O2 Delivery O2 Flow Rate FiO2 04/26/18 21:00 Room Air 04/26/18 20:00 98.5 62 18 106/69 (81) 96 04/26/18 16:00 98.1 65 18 101/69 (80) 97 04/26/18 12:00 99.9 74 18 108/66 (80) 97 04/26/18 09:00 Room Air 04/26/18 08:00 97.5 82 19 106/61 (76) 96 04/26/18 04:38 99.0 69 18 101/64 (76) 99 04/26/18 00:05 99.7 67 18 98/59 (72) 96 Intake and Output 04/25/18 04/26/18 19:00 07:00 Intake Total 236 ml 674 ml Balance 236 ml 674 ml Intake Oral 236 ml 354 ml IV Total 320 ml # Voids 1 5 Laboratory Tests 04/26/18 06:06: White Blood Count 7.3, Red Blood Count 4.31, Hemoglobin 12.3, Hematocrit 35.9L, Mean Corpuscular Volume 83, Mean Corpuscular Hemoglobin 28.5, Mean Corpuscular Hemoglobin Concent 34.3, Red Cell Distribution Width 11.4L, Platelet Count 262, Mean Platelet Volume 5.5L, Neutrophils (%) (Auto) 60.4, Lymphocytes (%) (Auto) 31.2, Monocytes (%) (Auto) 7.3, Eosinophils (%) (Auto) 0.2, Basophils (%) (Auto ) 0.9, Sodium Level 138, Potassium Level 3.5, Chloride Level 105, Carbon Dioxide Level 23, Anion Gap 10, Blood Urea Nitrogen 6L, Creatinine 0.5L, Estimat Glomerular Filtration Rate > 60, Glucose Level 95, Hemoglobin A1c 5.5, Uric Acid 2.3L, Calcium Level 8.9, Phosphorus Level 2.7, Magnesium Level 1.8, Total Bilirubin 0.6, Gamma Glutamyl Transpeptidase 21, Aspartate Amino Transf ( AST/SGOT) 33, Alanine Aminotransferase (ALT/SGPT) 47, Alkaline Phosphatase 73, Total Creatine Kinase 44, Total Protein 8.4H, Albumin 3.4, Globulin 5.0, Albumin /Globulin Ratio 0.7L, Triglycerides Level 102, Cholesterol Level 183, LDL Cholesterol 123H, HDL Cholesterol 53, Cholesterol/HDL Ratio 3.5, Vitamin B12 Level 393, Folate 17.4, Thyroid Stimulating Hormone (TSH) 2.279 Height (Feet): 5 Height (Inches): 2.00 Weight (Pounds): 146 General Appearance: no apparent distress, alert Neurologic: oriented x 3, responsive, depressed affect Kaci Booker MD Apr 26, 2018 23:06
[2018-04-27] VITALS: BP 107/63
[2018-04-27 04:00] VITALS: BP 108/67
[2018-04-27 08:00] VITALS: BP 112/68
--- NOTE | 2018-04-27 09:34 | GI Progress Note ---
Assessment/Plan Problems: (1) Methamphetamine abuse ICD Codes: F15.10 - Other stimulant abuse, uncomplicated SNOMED: 950338129 (2) Suicidal ideation ICD Codes: R45.851 - Suicidal ideations SNOMED: 9252015 (3) Depression ICD Codes: F32.9 - Major depressive disorder, single episode, unspecified SNOMED: 45187485 Qualifiers: Qualified Codes: F32.2 - Major depressive disorder, single episode, severe without psychotic features (4) Overdose ICD Codes: T50.901A - Poisoning by unspecified drugs, medicaments and biological substances, accidental (unintentional), initial encounter SNOMED: 27903968 Qualifiers: Qualified Codes: T50.902A - Poisoning by unspecified drugs, medicaments and biological substances, intentional self-harm, initial encounter (5) Tylenol overdose ICD Codes: T39.1X1A - Poisoning by 4-Aminophenol derivatives, accidental ( unintentional), initial encounter SNOMED: 275422517 Status: stable Status Narrative Discussed with Dr. Jarquin. Assessment/Plan on regular diet normal LFTS fu psych okay for DC per GI standpoint The patient was seen and examined at bedside and all new and available data was reviewed in the patients chart. I agree with the above findings, impression and plan. (Patient seen earlier today. Signature stamp does not reflect patient encounter time.). - Alton Jarquin MD Subjective Gastrointestinal/Abdominal: Reports: no symptoms Objective Last 24 Hour Vital Signs Date Time Temp Pulse Resp B/P (MAP) Pulse Ox O2 Delivery O2 Flow Rate FiO2 04/27/18 08:00 97.8 83 18 112/68 (83) 98 04/27/18 04:00 98.3 75 18 108/67 (81) 98 04/27/18 00:00 98.2 78 18 107/63 (78) 97 04/26/18 21:00 Room Air 04/26/18 20:00 98.5 62 18 106/69 (81) 96 04/26/18 16:00 98.1 65 18 101/69 (80) 97 04/26/18 12:00 99.9 74 18 108/66 (80) 97 Intake and Output 04/26/18 04/27/18 19:00 07:00 Intake Total 760 ml Balance 760 ml Intake Oral 760 ml # Voids 3 Height (Feet): 5 Height (Inches): 2.00 Weight (Pounds): 146 General Appearance: WD/WN, no apparent distress, alert Cardiovascular: normal rate Respiratory/Chest: normal breath sounds, no respiratory distress Abdominal Exam: normal bowel sounds, non tender, soft Extremities: normal range of motion, non-tender Gabby Goff NP Apr 27, 2018 09:34
--- NOTE | 2018-04-27 10:55 | Nephrology Progress Note ---
Assessment/Plan Problem List: (1) Suicidal ideation (2) Overdose (3) Depression Assessment Suicidal ideation Depression Overdose- tylenol level now down Alcohol intoxication Plan Hydrate PO K supplement as needed Med surg regular diet per psych ? DC Subjective ROS Limited/Unobtainable: No Objective Objective Last 24 Hour Vital Signs Date Time Temp Pulse Resp B/P (MAP) Pulse Ox O2 Delivery O2 Flow Rate FiO2 04/27/18 09:00 Room Air 04/27/18 08:00 97.8 83 18 112/68 (83) 98 04/27/18 04:00 98.3 75 18 108/67 (81) 98 04/27/18 00:00 98.2 78 18 107/63 (78) 97 04/26/18 21:00 Room Air 04/26/18 20:00 98.5 62 18 106/69 (81) 96 04/26/18 16:00 98.1 65 18 101/69 (80) 97 04/26/18 12:00 99.9 74 18 108/66 (80) 97 Intake and Output 04/26/18 04/27/18 18:59 06:59 Intake Total 760 ml Balance 760 ml Intake Oral 760 ml # Voids 3 Height (Feet): 5 Height (Inches): 2.00 Weight (Pounds): 146 General Appearance: no apparent distress Objective no change Toro Valentin MD Apr 27, 2018 10:54
[2018-04-27] MEDS ORDERED: LEXAPRO10 MG ORAL (11:13)
--- NOTE | 2018-04-27 12:36 | General Progress Note ---
Assessment/Plan Problem List: (1) Methamphetamine abuse ICD Codes: F15.10 - Other stimulant abuse, uncomplicated SNOMED: 371002158 (2) metham (3) Depression ICD Codes: F32.9 - Major depressive disorder, single episode, unspecified SNOMED: 49101811 Qualifiers: Qualified Codes: F32.2 - Major depressive disorder, single episode, severe without psychotic features (4) Overdose ICD Codes: T50.901A - Poisoning by unspecified drugs, medicaments and biological substances, accidental (unintentional), initial encounter SNOMED: 14480172 Qualifiers: Qualified Codes: T50.902A - Poisoning by unspecified drugs, medicaments and biological substances, intentional self-harm, initial encounter Assessment/Plan lexapro 10mg qam the pt does not meet the criteria for hold/inpatient level of care script will be given d/w nurse Subjective Neurologic/Psychiatric: Reports: anxiety, depressed, emotional problems Allergies: Coded Allergies: No Known Allergies (Unverified , 04/24/18) Subjective the pt stated that she was doing well and would like to have lexapro Objective Last 24 Hour Vital Signs Date Time Temp Pulse Resp B/P (MAP) Pulse Ox O2 Delivery O2 Flow Rate FiO2 04/27/18 09:00 Room Air 04/27/18 08:00 97.8 83 18 112/68 (83) 98 04/27/18 04:00 98.3 75 18 108/67 (81) 98 04/27/18 00:00 98.2 78 18 107/63 (78) 97 04/26/18 21:00 Room Air 04/26/18 20:00 98.5 62 18 106/69 (81) 96 04/26/18 16:00 98.1 65 18 101/69 (80) 97 Intake and Output 04/26/18 04/27/18 18:59 06:59 Intake Total 760 ml Balance 760 ml Intake Oral 760 ml # Voids 3 Height (Feet): 5 Height (Inches): 2.00 Weight (Pounds): 146 General Appearance: no apparent distress, alert Neurologic: oriented x 3, responsive, normal mood/affect Kaci Booker MD Apr 27, 2018 12:36
--- NOTE | 2018-04-30 09:56 | Discharge Summary ---
Discharge Summary Discharge Summary _ DATE OF ADMISSION: 04/24/2018 DATE OF DISCHARGE: 04/27/2018 REASON FOR ADMISSION: 27 years old female with history of depression, was brought by paramedics with complaint of feeling depressed and suicidal. Apparently patient took about 10 tablets of ibuprofen an hour prior to arrival. Patient reported that she wanted to hurt herself . She had been depressed over the year. Patient under care of psychiatrist and was taking antidepressant medication for about a year and a half. Currently not on any antidepressant medications. Patient had a history of amphetamine use. Last use was 2 weeks ago. Patient also reported intake of alcohol earlier that night. Upon evaluation vital signs were stable. Chemistry was unremarkable. LFT within normal limits. No leukocytosis, stable hemoglobin and hematocrit. Urinalysis revealed no evidence of UTI . Urine test negative. Urine toxicology screen was negative. Tylenol level was 203. Alcohol level 146. Police was placed patient on 5150. Patient received dose of Mucomyst/ acetylcysteine in ED. Patient admitted with diagnosis of suicidal attempt, overdose, depression, alcohol intoxication, amphetamine use. CONSULTANTS: GI specialist jack spooler tender Dr. Valentin psychiatrist [facility]SE: Patient admitted to medical surgical floor. Patient started on IV hydration. Sitter provided for for safety. Patient was given Mucomyst another time while on the floor. Next day Tylenol level down to less than 2. LFT remained stable. Electrolytes and renal parameters were closely monitored ,and electrolytes corrected as needed. Nephrotoxins were avoided. Diet advanced as tolerated. B12 and folate within normal limits. TSH in range. Lipid panel revealed LDL not at goal -123. Patient was educated on low-fat low-cholesterol diet. Patient was able to tolerate diet. Psychiatrist closely followed. Per psychiatrist, patient was started on Lexapro. Patient did not meet any criteria for hold or inpatient level of care. Prescription for antidepressant provided. Patient to follow-up with her own psychiatrist as outpatient. Patient was counseled on abstinence from illicit street drugs and alcohol. Patient was stable for discharge. FINAL DIAGNOSES: Suicidal ideation Depression Overdose with Tylenol Alcohol intoxication Methamphetamine abuse DISCHARGE MEDICATIONS: See Medication Reconciliation list. DISCHARGE INSTRUCTIONS: Patient was discharged home. Follow up with her own psychiatrist as outpatient. I have been assigned to dictate discharge summary for this account. I was not involved in the patient's management. Jazzy Fish NP Apr 30, 2018 09:55
== END 2018-04-27 11:38 | disposition home or self-care (01) | DRG 817 ==
LOC: EDBD 05:34 → EMR 07:05 → 2E 07:54 → EDBEDREQ 13:17 → 3E 04-25 22:11
DX: T39.1X2A Poisoning by 4-Aminophenol derivatives, intentional self-harm, initial encounter (principal); R45.851 Suicidal ideations; F32.9 Major depressive disorder, single episode, unspecified; F10.129 Alcohol abuse with intoxication, unspecified; F15.10 Other stimulant abuse, uncomplicated
CPT/HCPCS: 36415; 80048; 80053; 80061; 80307; 80329; 81003; 81025; 82550; 82607; 82746; 82977; 83036; 83735; 84100; 84443; 84450; 84460; 84550; 85025; 85610; 93005; 96365; 96366; 99285; J8499